=== PATIENT | male | born 1975 | race Caucasian/White ===

== ENCOUNTER 2024-01-31 13:22 | Emergency (ER) | payer BC, SELFPAY ==
[2024-01-31 13:22] VITALS: BP 137/85
[2024-01-31 13:25] VITALS: BP 140/100
--- NOTE | 2024-01-31 14:10 | ED.GENMED ---
History of Present Illness
General
Chief Complaint: Crisis Evaluation
Source: patient and spouse
Exam Limitations: altered mental status
Time Seen by Provider: 01/31/24 13:43
Nursing documentation reviewed up to this point in time: agreed with
History of Present Illness
History of Present Illness:
49-year-old male, accompanied by , has not slept for a few days losing weight, pressured speech, no history of bipolar disorder denies any drug use specifically amphetamines was seen at [facility] yesterday had blood work and a CAT scan deemed
to be stable to go home states he is actually worsening, no fevers no vomiting
Past History
Past History
ED Past Medical History: None
Social History
Tobacco: Non-smoker
Alcohol: None
Drug: None
Personal:
Living: with family
Family History
Family History: Other (States family does have mental)
Review of Systems
Review of Systems
All Other Systems: Not applicable
Constitutional: Reports weight loss and sleep disturbance
Neurological: Reports no symptoms; Denies headache
Endocrine: Reports no symptoms
Hematologic/Lymphatic: Reports no symptoms
Psychiatric: Reports depression and anxiety; Denies suicidal
Phy Exam
Physical Exam
Physical Exam:
Physical Exam
General: no apparent distress, not acutely ill
Neck: No jaundice
Heart: Regular
Lungs: no acute respiratory distress. clear bilaterally
Abdomen: Nontender
Neuro: alert and oriented. no focal neurological deficits
Skin: no rash
Psychiatric: Poor eye contact speech is pressured manic
Extremities: no edema.
Course
Orders/Labs/Results
Orders:
Orders
01/31/24 14:08
Electrocardiogram (*1) Urgent
Reason for Study: QTc Monitoring
Crisis Consult Urgent
Reason for Consult: junaid
EKG- Treatment ONCE
01/31/24 14:35
Acetaminophen Urgent
Alcohol Urgent
Complete Blood Count/With Diff Urgent
Comprehensive Metabolic Panel Urgent
Salicylate Urgent
TSH Urgent
Urine Drug Abuse Screen Urgent
Date Specimen was Collected: 01/31/24
Time Specimen was Collected: 14:10
01/31/24 15:36
Lorazepam [Ativan] 1 mg PO NOW STA
01/31/24 15:59
Asenapine Sublingual [Saphris] 10 mg SL NOW STA
Abnormal Lab Results
01/31/24
14:35
Absolute Neuts (auto) 7.1 H 10^3/uL
(1.4-6.5)
Absolute Monos (auto) 0.8 H 10^3/uL
(0.1-0.6)
Lymphocytes % 17.4 L %
(20.5-51.1)
Glucose 110 H mg/dl
(70-99)
Albumin 5.1 H g/dl
(3.5-5.0)
Salicylates < 1.0 L mg/dl
(2.0-20.0)
Acetaminophen < 10 L ug/ml
(10-30)
01/31/24 14:35
01/31/24 14:35
Vital Signs
Initial and Last Documented VS:
Initial Vital Signs
Temp Pulse Resp BP Pulse Ox
98.0 F 92 16 140/100 98
01/31/24 13:25 01/31/24 13:25 01/31/24 13:25 01/31/24 13:25 01/31/24 13:25
Last Documented Vital Signs
Temp Pulse Resp BP Pulse Ox
98.0 F 92 16 140/100 98
01/31/24 13:25 01/31/24 13:25 01/31/24 13:25 01/31/24 13:25 01/31/24 13:25
MDM/Problems Addressed
Differential Diagnosis Includes:
Mental illness toxic metabolic thyroid doubt acute infectious
MDM/Problems Addressed:
Mental status
*Critical Care Note
Total Time (30-74mins, 75-104mins- exclusive of procedures): Not Applicable
Update Note
Update Note:
Will check labs UDS, old records from [facility] have been ordered crisis has been consulted
Update, labs and CT report from [facility] reviewed repeat labs today noted patient becoming increasingly manic requiring sedation reviewed with psychiatry will be admitted to psychiatric hospital
ED Attending Note
-
Portions of this chart may have been created with voice recognition software.� Occasional wrong word or��sound alike� substitutions may have occurred due to the inherent limitations of voice recognition software.
Discharge Plan
Departure
Patient Disposition: Psych Facility
Date of Disposition: 01/31/24
Time of Disposition: 16:13
Patient with high blood pressure during this ER visit?: No
Condition: Fair
Covid-19: Not Applicable
Discharge Problem:
Acute junaid
Interventions
Interventions:
*Risk Screen - Suicide Last Done: 01/31/24 13:25
*General Assessment Last Done: 01/31/24 13:25
*Neglect/Abuse Screening Last Done: 01/31/24 14:39
ED- Fall Risk Assessment Last Done: 01/31/24 14:39
*ED COVID-19 Vaccine History Last Done: 01/31/24 13:25
ED-Psychological Assessment Last Done: 01/31/24 14:39
Discharge Date and Time
Print Language: SETSWANA
[2024-01-31 14:47] LABS: % Basophils 0.2 % (0-2); % Eosinophils 0.3 % (0-6); % Immature Granulocytes 0.3 % (0-0.5); % Lymphocytes 17.4 % (20.5-51.1); % Monocytes 8.5 % (1.7-9.3); % Neutrophils 73.3 % (42.2-75.2); Absolute Lymphocytes 1.7 10^3/uL (1.2-3.4); Absolute Monocytes 0.8 10^3/uL (0.1-0.6); Absolute Neutrophils 7.1 10^3/uL (1.4-6.5); Hematocrit 42.8 % (39.0-52.0); Hemoglobin 15.1 g/dL (13.0-18.0); Mean Corp Hgb Conc. 35.3 g/dL (33.0-37.0); Mean Corpuscular Hgb 29.4 pg (27.0-31.0); Mean Corpuscular Volume 83.3 fL (80.0-94.0); Mean Platelet Volume 7.9 fL (7.4-10.4); Nucleated Red Blood Cells % 0 % (-); Platelet Count 319 10^3/uL (130-400); Red Blood Cell Count 5.14 10^6/uL (4.70-6.10); Red Cell Dist. Width 11.8 % (11.5-14.5); White Blood Cell Count 9.6 10^3/uL (4.8-10.8)
[2024-01-31 14:57] LABS: Amphetamines Negative (Negative); Barbiturates Negative (Negative); Benzodiazepines Negative (Negative); Buprenorphine Negative (Negative); Cocaine Negative (Negative); Marijuana Negative (Negative); Methadone Negative (Negative); Methamphetamines Negative (Negative); Opiates Negative (Negative); Phencyclidine Negative (Negative); Tricyclic Antidepressants Negative (Negative)
[2024-01-31 15:04] LABS: ALT (SGPT) 25 U/L (0-50); AST (SGOT) 28 U/L (17-59); Acetaminophen < 10 ug/ml (10-30); Albumin 5.1 g/dl (3.5-5.0); Alkaline Phosphatase 56 U/L (38-126); Blood Urea Nitrogen 17 mg/dl (9-20); Calcium 9.8 mg/dl (8.4-10.2); Carbon Dioxide 23 mmol/L (22-30); Chloride 102 mmol/L (98-107); Glucose 110 mg/dl (70-99); Potassium 4.2 mmol/L (3.5-5.1); Salicylate < 1.0 mg/dl (2.0-20.0); Sodium 136 mmol/L (135-145); Total Bilirubin 1.1 mg/dl (0.2-1.3); Total Protein 7.8 g/dl (6.3-8.2); eGFR > 60.00
[2024-01-31 15:05] LABS: Alcohol None Detected
[2024-01-31] MEDS: ATIVAN 1 MG PO (15:43)
[2024-01-31 15:48] LABS: TSH 1.53 uIU/ml (0.47-4.68)
[2024-01-31 16:00] VITALS: BP 133/74
[2024-01-31] MEDS: SAPHRIS 10 MG SL (16:03)
--- NOTE | 2024-01-31 16:10 | CON.MD ---
Consultation - Medical
-
patient seen chart reviewed. discussed w dr donis. and d present at bedside. the patient is a 49 y o man brought in by his . he has been increasingly agitated. he has not been sleeping for the past three or four days. he is very loud w
flight of ideas and disorganization of thought. family brought him to [facility] last night but they dc'ed him after doing bloodwork a cat scan saying they could not keep him. family brought him back today bc of increasing fear that he would become
worse and act irrationally. he insisted on driving her to today and did not allow anyone to wear seat belts. said they just unbelted themselves for fear he would get more out of control. patient has no hx of psych rx. he has always been an
energetic person...a fast talker thinker and doer ....who did not need a lot of sleep. was not cooperative with this interview and efforts to get him to focus just led him to talk louder and faster and become more agitated patient has experienced
some weight loss and has been eating less.
past psych hx see above
medical hx patient generally healthy. labs look okay as does tox screen so far.cbc and chemistry as well as ua. . ecg pending cat scan brain done at [facility] was normal ecg reading looks normal thus far bp 133/74
fh there are family members who are bipolar (half brother) and others w depression
substance abuse denied
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
mse alert ox3 speech very loud and pressured. thought process with flight of ideas clang assocations at time disorganized there may be underlying delusions mood is grandiose and irritable affect labile denies si insight judgment lacking
dx bipolar manic w psychotic fx
plan will encourage patient to sign in to psych voluntarily. given the level of his excitation and agitation concerned he may act out in a way that potentially endangers him or family. if not will petition for back up 302 which we will set in
motion if he refuses to sign in. dr donis will be the examiner. ativan prn agitation. saphris now in the hopes we can calm him.
[2024-01-31 18:06] VITALS: BP 128/78
[2024-02-01] MEDS: ATIVAN 1 MG PO (01:20)
--- NOTE | 2024-02-01 01:27 | ED.CRISIS ---
ED Crisis Note
ED Crisis Note
Subjective:
Patient is a 49-year-old man who is here for manic episode. He is on a 302. On my evaluation patient is pacing around the room trying to leave. Security is at bedside. He does state that he is getting agitated
Objective:
Patient pacing around the room. He is redirectable.
Assessment/Plan:
Patient is here on a 302 for manic episode. He did receive Ativan earlier. I did offer p.o. Ativan for patient which she is amenable to taking. Will continue to monitor for any additional medications needed.
[2024-02-01 08:30] VITALS: BP 137/85
== END 2024-02-01 09:30 ==
LOC: EMR 13:22
PROVIDERS: EMERGENCY PHYSICIAN Emergency Medicine
DX: F30.9 Manic episode, unspecified (principal); R41.82 Altered mental status, unspecified
CPT/HCPCS: 99283; 80053; 80143; 80179; 80306; 82077; 84443; 85025; 93005

== ENCOUNTER 2024-05-13 19:44 | Emergency (ER) | payer BC, SELFPAY ==
[2024-05-13 19:51] VITALS: BP 153/96
[2024-05-13 21:36] VITALS: BP 152/96; BMI 23.8
[2024-05-13] MEDS: AMBIEN 5 MG PO (22:36)
--- NOTE | 2024-05-13 23:42 | ED.GENMED ---
History of Present Illness
General
Chief Complaint: Depression
Source: patient, records and spouse
Exam Limitations: none
Time Seen by Provider: 05/13/24 21:19
Nursing documentation reviewed up to this point in time: agreed with
History of Present Illness
History of Present Illness:
49-year-old male with a past medical history of GERD, bipolar disorder presents to the ER with his for evaluation of insomnia. Patient unfortunately had episode in January of junaid with psychotic features requiring inpatient psychiatric
treatment. After he was discharged he says that he has not been compliant with his psychiatric medications. He says that generally he has been feeling depressed, poor mood and poor energy level. He says he has had a poor appetite. He says that
particular over the past few days he has been struggling with sleep only sleeping for an hour or 2 at night. He has tried ashwagandha, magnesium, melatonin but none of these things are helping. Because of this insomnia he decided to come to the
emergency room�he is seeking relief of his insomnia and would also like to reestablish psychiatric care. He denies any suicidality or homicidal ideation. He denies hallucinations. He denies any drug or alcohol use.
Past History
Past History
ED Past Medical History: None
Social History
Tobacco: Non-smoker
Alcohol: None
Drug: None
Personal:
Living: with family
Family History
Family History: Other (States family does have mental)
Review of Systems
Review of Systems
All Other Systems: ROS reviewed and negative except as documented in HPI and ROS
Constitutional: Reports fatigue
Respiratory: Denies trouble breathing
Cardiac: Denies chest pain
ABD/GI: Denies abdominal pain
Psychiatric: Reports depression, anxiety and other (Insomnia); Denies suicidal or hallucinations
Phy Exam
Physical Exam
Physical Exam:
General: Awake, alert, oriented x3; no acute distress
Head: Normocephalic, atraumatic
Eyes: Conjunctiva normal, pupils equal round and reactive to light bilaterally
Throat: Airway intact, handling secretions
Neck: Trachea midline, supple without meningismus
Lungs: Clear to auscultation bilaterally, no wheezing, rales, rhonchi
Heart: Regular rate and rhythm, no murmurs, gallops, or rubs
Abd: Soft, non distended, nontender
Neuro: Cranial nerves grossly intact, speech fluid
Extremities: No edema in extremities, equal pulses in all extremities
Psych: Depressed mood, somewhat flat affect
Scores
Heart Failure Risk
Heart Failure Risk Score: Not Applicable
Heart Score for Chest Pain Patients
STEMI patient?: Not applicable
Withdrawal Assessment of Alcohol
Withdrawal Assessment Completed?: Not applicable
Course
Orders/Labs/Results
Orders:
Orders
05/13/24 21:34
Crisis Consult Routine
Reason for Consult: depression
05/13/24 22:33
Zolpidem Tartrate [Ambien] 5 mg PO NOW STA
Vital Signs
Initial and Last Documented VS:
Initial Vital Signs
Temp Pulse Resp BP Pulse Ox
37.1 C 87 18 153/96 99
05/13/24 19:51 05/13/24 19:51 05/13/24 19:51 05/13/24 19:51 05/13/24 19:51
Last Documented Vital Signs
Temp Pulse Resp BP Pulse Ox
37.1 C 87 18 152/96 97
05/13/24 19:51 05/13/24 19:51 05/13/24 19:51 05/13/24 21:36 05/13/24 21:37
MDM/Problems Addressed
Differential Diagnosis Includes:
Depression, bipolar disorder
MDM/Problems Addressed:
49-year-old male presents for evaluation of recent depression and insomnia as described above. He is seeking to reestablish psychiatric care and seeking some relief from his insomnia. Vitals and exam as above. Case discussed with crisis who was
able to provide him resources for close outpatient psychiatric follow-up. He denies suicidality, denies being homicidal and he does not feel he needs inpatient psychiatric treatment and I agree. I had a long discussion with the patient and his
about his insomnia. I explained that pursuing psychiatric treatment will likely help as I suspect that depression is at least in part to blame for his insomnia. I explained that good sleep hygiene will be important for long-term management of
insomnia. I explained that we can prescribe medications for sleep aid but I explained that this is a temporary solution that it should be used sparingly as they carry risk of dependency. He indicated understanding and feels comfortable with the
plan that is in place. Stable for discharge. All questions answered.
*Critical Care Note
Total Time (30-74mins, 75-104mins- exclusive of procedures): Not Applicable
Patient Management
Discussion with other providers: Other (Discussed with crisis)
ED Attending Note
-
Portions of this chart may have been created with voice recognition software.� Occasional wrong word or��sound alike� substitutions may have occurred due to the inherent limitations of voice recognition software.
Discharge Plan
Departure
Patient Disposition: Home (Routine Discharge)
Date of Disposition: 05/13/24
Time of Disposition: 22:13
Patient with high blood pressure during this ER visit?: Yes
Discharge Problem:
Depression, Disturbance, sleep
Instructions: Depression, Adult (DC), Good sleep hygiene
Prescriptions:
New
zolpidem [Ambien] 5 mg tablet
5 mg PO HS PRN (Reason: insomnia) Qty: 7 0RF
Activity Restrictions/Additional Instructions:
Thank you for visiting the Emergency Department at [facility].
1. Please schedule a follow up appointment as directed. Call first thing tomorrow morning to make an appointment.
2. If indicated, please take your medications as instructed and indicated on discharge paperwork.
3. If any of your symptoms do not improve, or persist, or become more severe within 6-12 hours, please return to the emergency department for further care.
4. Please return to the emergency department if you develop a headache, neck pain/stiffness, fever greater than 100.4F, chest pain, shortness of breath, persistent nausea, vomiting, slurred speech, difficulty walking, numbness/tingling, weakness,
signs of infection or any other symptoms that are worrisome to you.
Please call [phone] if you have any questions.
Interventions
Interventions:
*Risk Screen - Suicide Last Done: 05/13/24 19:53
*General Assessment Last Done: 05/13/24 19:50
*Neglect/Abuse Screening Last Done: 05/13/24 19:50
*ED- Fall Risk Assessment Last Done: 05/13/24 21:37
*ED COVID-19 Vaccine History Last Done: 05/13/24 19:50
*Nursing Disposition Last Done: 05/13/24 22:38
ED-Psychological Assessment Last Done: 05/13/24 21:37
Discharge Date and Time
Discharge Date/Time: 05/13/24 22:39
Print Language: LIBERIAN
== END 2024-05-13 22:39 | disposition home or self-care (01) ==
LOC: EMR 19:44
PROVIDERS: EMERGENCY PHYSICIAN Emergency Medicine; FAMILY PHYSICIAN Family Medicine
DX: F32.A Depression, unspecified (principal); G47.00 Insomnia, unspecified; R03.0 Elevated blood-pressure reading, without diagnosis of hypertension; K21.9 Gastro-esophageal reflux disease without esophagitis; Z91.148 Patient's other noncompliance with medication regimen for other reason
CPT/HCPCS: 99283